=== PATIENT | male | born 1980 | race African-American/Black ===

== ENCOUNTER 2018-06-11 11:00 | Emergency (ER) | payer SELFPAY ==
[2018-06-11 13:48] VITALS: BP 132/82
--- NOTE | 2018-06-11 13:52 | ED ---
Skin Complaint - HPI Summary HPI Summary: [id number]-[id number] patient here with lack to right wrist prior to arrival. He reports he was trying to clean his dresser when I'm you're sliced the edge of his wrist. Minimal bleeding any cleaned with hydrogen peroxide and Hibiclens prior to arrival. Minimal soreness in denies numbness, tingling, weakness,. His immunizations are up-to-date. No other injuries as a result of this encounter. - History of Current Complaint Chief Complaint: EDLacSutureRecheck Time Seen by Provider: 06/11/18 11:13 Stated Complaint: CUT RIGHT WRIST Hx Obtained From: Patient Pain Intensity: 0 - Allergy/Home Medications Allergies/Adverse Reactions: Allergies Allergy/AdvReac Type Severity Reaction Status Date / Time No Known Allergies Allergy Verified 06/11/18 11:06 Home Medications: Home Medications NK [No Home Medications Reported] 06/11/18 [History Confirmed 06/11/18] PMH/Surg Hx/FS Hx/Imm Hx Previously Healthy: Yes Endocrine/Hematology History: Denies: Hx Anticoagulant Therapy, Hx Blood Disorders, Hx Diabetes, Autoimmune Disease - Immunization History Date of Tetanus Vaccine: 2017 Immunizations Up to Date: Yes Infectious Disease History: No Infectious Disease History: Denies: Hx of Known/Suspected MRSA, Traveled Outside the [place] in Last 30 Days - Family History Known Family History: Positive: Unknown - Social History Alcohol Use: Occasionally Hx Substance Use: No Substance Use Type: Reports: None Hx Tobacco Use: Yes Smoking Status (MU): Light Every Day Tobacco Smoker Review of Systems Positive: no symptoms reported Musculoskeletal: Negative Skin: Other - laceration Neurological: Negative Psychological: Normal All Other Systems Reviewed And Are Negative: Yes Physical Exam Triage Information Reviewed: Yes Vital Signs On Initial Exam: Initial Vitals Temp Pulse Resp BP Pulse Ox 98.1 F 90 16 129/81 96 06/11/18 11:03 06/11/18 11:03 06/11/18 11:03 06/11/18 11:03 06/11/18 11:03 Vital Signs Reviewed: Yes Appearance: Positive: Well-Appearing, No Pain Distress, Well-Nourished Skin: Positive: Warm, Skin Color Reflects Adequate Perfusion - 1.5cm linear lac over Rt ventral wrist - subcutaneous tissue observed - no vessels, no nerves, no muscle or tendon observed - clean; no active bleeding but wet Head/Face: Positive: Normal Head/Face Inspection Eyes: Positive: EOMI ENT: Positive: Hearing grossly normal Respiratory/Lung Sounds: Positive: Breath Sounds Present Cardiovascular: Positive: Pulses are Symmetrical in both Upper and Lower Extremities Musculoskeletal: Positive: Normal, Strength/ROM Intact Neurological: Positive: Normal, Sensory/Motor Intact, Alert, Oriented to Person Place, Time, CN Intact II-III Psychiatric: Positive: Normal Procedures - Laceration/Wound Repair 1 Location: upper extremity - Rt wrist Description: Linear Anesthesia: Local, 1.0%, Lido Length, Depth and Shape: 1.5cm x 3mm Betadine Prep?: Yes Irrigated w/ Saline (ccs): 100 Laceration/Wound Explored: clean Closure: Single Layer Suture Type: Other - 5-0 ethilon Number of Sutures: 3 Layer Closure?: No Sterile Dressing Applied?: Yes - petroleum + gauze + SHILOH wrap - pt tolerated well Diagnostics - Vital Signs Vital Signs Temp Pulse Resp BP Pulse Ox 06/11/18 11:03 98.1 F 90 16 129/81 96 - Laboratory Lab Statement: Any lab studies that have been ordered have been reviewed, and results considered in the medical decision making process. Course/Dx - Diagnoses Provider Diagnoses: Laceration of right wrist Discharge - Sign-Out/Discharge Documenting (check all that apply): Patient Departure - Discharge Plan Condition: Stable Disposition: HOME Patient Education Materials: Care For Your Stitches (ED), Laceration (ED) Referrals: No Primary Care Phys,NOPCP [Primary Care Provider] - [facility] [Outside] Additional Instructions: Keep Dressing clean and dry and in place for the next 48 hours. After that time you may remove dressing, gently wash wound with soap and water, rinse well and pat dry with clean cloth. Reapply triple antibiotic ointment and clean gauze dressing. Continue this daily until sutures are removed. Call [facility] today to schedule wound recheck and suture removal in 7-10 days. You may also have sutures removed at urgent care or return to ED. For pain or swelling, rest, ice, elevate and may take ibuprofen alternating with acetaminophen as needed for pain. * If you develop redness, swelling, streaking, purulent drainage, fevers or chills, seek medical attention sooner or return to the emergency department. - Billing Disposition and Condition Condition: STABLE Disposition: Home
== END 2018-06-11 13:48 | disposition home or self-care (01) ==
LOC: ED 11:00
DX: S61.511A Laceration without foreign body of right wrist, initial encounter (principal); W45.8XXA Other foreign body or object entering through skin, initial encounter; Y92.013 Bedroom of single-family (private) house as the place of occurrence of the external cause; F17.210 Nicotine dependence, cigarettes, uncomplicated
CPT/HCPCS: 12001; 99281